=== PATIENT | female | born 1960 | race Caucasian/White ===

== ENCOUNTER 2021-06-02 13:36 | Emergency (ER) | payer BC, OTHER ==
[2021-06-02] MEDS ORDERED: Ondansetron 4 MG/2 ML SDV IVPUSH ONE (14:32)
[2021-06-02] MEDS ORDERED: Dextrose 5%-Lactated Ringers 1,000 ML IV SCH (14:45)
[2021-06-02] MEDS ORDERED: Metoclopramide 10 MG/2 ML SDV IVPUSH ONE (17:04)
[2021-06-02] MEDS ORDERED: diphenhydrAMINE 50 MG/ML SDV IVPUSH ONE (17:05)
[2021-06-02 17:17] VITALS: BP 146/69; PULSE 102
== END 2021-06-02 17:33 | disposition home or self-care (01) ==
LOC: JD.ED 13:36
DX: A08.4 Viral intestinal infection, unspecified (principal); E78.00 Pure hypercholesterolemia, unspecified; K21.9 Gastro-esophageal reflux disease without esophagitis; Z79.899 Other long term (current) drug therapy; Z87.891 Personal history of nicotine dependence
CPT/HCPCS: 36415; 74018; 80053; 81001; 83690; 83735; 85025; 86140; 96374; 96375; 99284; J1200; J2405; J2765; J7121

== ENCOUNTER 2023-11-14 19:32 | Emergency (ER) | payer BC, OTHER ==
[2023-11-14] MEDS: Lidocaine 2% 11 ML Jelly Filled Syringe MUCMEM ONE ×2 (20:32→21:32)
[2023-11-14 20:43] LABS: BASOPHILS PERCENT AUTO 0.6 % (0.0-1.0); EOSINOPHILS ABSOLUTE AUTO 0.1 K/mm3 (0.0-0.4); EOSINOPHILS PERCENT AUTO 1.4 % (0.0-6.0); HEMATOCRIT 43.4 % (37.0-47.0); HEMOGLOBIN 14.5 gm/dl (12.0-16.0); IMMATURE GRAN ABSOLUTE AUTO 0.01 K/mm3 (0.00-0.05); IMMATURE GRAN PERCENT AUTO 0.2 % (0.0-0.4); LYMPHOCYTES ABSOLUTE AUTO 2.7 K/mm3 (1.0-4.8); LYMPHOCYTES PERCENT AUTO 43.1 % (24.0-44.0); MEAN CORPUSCULAR HEMOGLOBIN 28.4 pg (28.0-32.0); MEAN CORPUSCULAR HGB CONC 33.4 g/dl (32.0-36.0); MEAN CORPUSCULAR VOLUME 85.1 fl (83.0-99.0); MEAN PLATELET VOLUME 8.9 fl (9.4-12.3); MONOCYTES ABSOLUTE AUTO 0.6 K/mm3 (0.0-0.8); MONOCYTES PERCENT AUTO 9.3 % (0.0-8.0); NEUTROPHILS ABSOLUTE AUTO 2.9 K/mm3 (1.8-7.7); NEUTROPHILS PERCENT AUTO 45.4 % (41.0-71.0); PLATELET COUNT,PLT 312 K/mm3 (150-400); WHITE BLOOD CELL COUNT,WBC 6.33 K/mm3 (3.9-11.3)
[2023-11-14 20:59] LABS: A/G RATIO 1.1 (1-2); ALBUMIN 3.4 g/dl (3.4-5.0); BILIRUBIN TOTAL 0.2 mg/dL (0.2-1.0); BUN/CREATININE RATIO 12.2 (14-18); CALCIUM 8.8 mg/dL (8.5-10.1); CREATININE 0.9 mg/dL (0.55-1.02); EST CRCL DRUG DOSING (CG) 53.61 mL/min; PROTEIN TOTAL,TP 6.5 g/dl (6.4-8.2)
[2023-11-14] MEDS: Polyethylene Glycol 3350 Powder 17 GM Packet PO ONE (22:13)
[2023-11-14] MEDS: Hydrocortisone Acetate 25 MG Supp RECTAL ONE (22:14)
[2023-11-14 22:47] VITALS: BP 151/78; PULSE 87
[2023-11-15] MEDS ORDERED: Hydrocortisone Acetate 25 MG Supp RECTAL ONE (21:51)
== END 2023-11-14 22:18 | disposition home or self-care (01) ==
LOC: JD.ED 19:32
DX: K64.5 Perianal venous thrombosis (principal); E78.00 Pure hypercholesterolemia, unspecified; Z79.899 Other long term (current) drug therapy; Z86.16 Personal history of COVID-19; Z90.49 Acquired absence of other specified parts of digestive tract; Z90.710 Acquired absence of both cervix and uterus
CPT/HCPCS: 36415; 80053; 85025; 99283; A9270